=== PATIENT | female | born 1985 | race Caucasian/White ===

== ENCOUNTER 2021-12-27 14:24 | Outpatient (CLI) | payer SELFPAY ==
[~2021-12-27] VITALS: Ht 162.6 cm; Wt 91.8 kg
[2021-12-27 14:30] VITALS: TEMP 97.9
[2021-12-27 14:45] VITALS: BP 118/71; PULSE 77; TEMP 97.9
[2021-12-27] MEDS ORDERED: PRENATAL TABLET (15:08)
[2021-12-27] MEDS ORDERED: GLUCOPHAGE500 MG/TAB PO (15:09)
[2021-12-27] MEDS ORDERED: NOVOLIN N100 UNIT/1 SQ (15:41)
[2021-12-27] MEDS ORDERED: ZOLOFT 50MG50 MG (15:42)
[2021-12-27] MEDS ORDERED: ABILIFY 10MG TA10 MG (15:43)
[2021-12-27 16:30] VITALS: BP 118/71; PULSE 77; TEMP 97.9
--- NOTE | 2021-12-27 16:59 | NUR ---
PT DISCHARGED HOME IN STABLE CONDITION WITH NO COMPLAINTS. PT TO FOLLOW UP AT CLINIC TOMORROW. PT VERBALIZED UNDERSTANDING. LABOR PRECAUTIONS AND KICK COUNTS EDUCATION EXPLAINED TO PT. PT VERBALIZED UNDERSTANDING.
== END 2021-12-27 16:32 | disposition home or self-care (01) ==
LOC: LDRO 14:24
DX: Z34.90 Encounter for supervision of normal pregnancy, unspecified, unspecified trimester (principal); Z3A.00 Weeks of gestation of pregnancy not specified

== ENCOUNTER 2021-12-30 22:11 | Outpatient (CLI) | payer BC ==
[~2021-12-30] VITALS: Ht 162.6 cm; Wt 90.9 kg
[~2021-12-30 22:11] MED LIST: ABILIFY 10MG TA10 MG; GLUCOPHAGE500 MG/TAB PO; NOVOLIN N100 UNIT/1 SQ; PRENATAL TABLET; ZOLOFT 50MG50 MG
--- NOTE | 2021-12-30 22:15 | NUR ---
PATIENT ARRIVED ON THE UNIT WITH SPOUSE AND WITH NO DISTRESS COMPLAING OF CONTRACTIONS.
[2021-12-30 22:45] VITALS: BP 118/61; PULSE 93; TEMP 98
--- NOTE | 2021-12-30 23:50 | NUR ---
PATIENT GIVEN DISCHARGE ORDERS AND ALL QUESTIONS HAVE BEEN ASNWERED. PT. AMBULATED off the unit with spouse.
== END 2021-12-30 23:50 | disposition home or self-care (01) ==
LOC: LDRO 22:11 → LDR 22:15 → LDRO 23:50
DX: Z36.9 Encounter for antenatal screening, unspecified (principal); Z3A.37 37 weeks gestation of pregnancy
CPT/HCPCS: OP

== ENCOUNTER 2022-01-07 04:05 | Inpatient (IN) | payer BC ==
[~2022-01-07] VITALS: Ht 162.6 cm; Wt 93.2 kg
[2022-01-07] VITALS (24 sets, daily range): BP systolic 97–124; BP diastolic 53–80; PULSE 61–644; TEMP 97.6–98
--- NOTE | 2022-01-07 04:15 | NUR ---
G10. L9. Ambulatory to LDR 6 with spouse. Clean gown on and pt uses restroom. EFM and TOCO explained and applied. Pt reports contractions every 2-3 mins. Denies leaking of fluids. Reports minimal bloody show and good movement. Pt reports wanting to attempt TOLAC and states versandralized his okay. SVE completed and plan of care explained. Pt requesting epidural at this time 0430: called and notified of pts status. Admit orders received. See physican notification. 0455: IV started and labs obtained via IV sites. 0456: LR bolus infusing without difficulty. Pen G also started at this time. See eMarJoanna Cleveland FERMENTER CHAMPAGNE at nurses station and updated on pts request for epidural at this time. 0500: Megha FERMENTER CHAMPAGNE at bedside for epidural placement. Pt assisted to edge of bed for placement. Difficulty tracing FHR due to maternal position. Pulse ox applied. 0510: Single shot administered by Megha FERMENTER CHAMPAGNE. See anesthsia records. 0518: Pt assisted to wedge right position. Plan of care and safety precautions explained. 0555: Tavares placed. SVE completed. Blood sugar taken.
[2022-01-07 05:28] LABS: BASO % 0.3 % (0.0-2.0); EOS # 0.1 K/mm3 (0.0-0.7); EOS % 1.2 % (0.0-4.0); GRAN # 6.8 K/mm3 (1.4-6.5); GRAN % 65.4 % (42.2-75.2); HEMOGLOBIN 11.4 g/dl (12.5-16.0); LYMPH # 2.8 K/mm3 (1.2-3.4); MEAN CELL VOLUME 85 fl (80.0-100.0); MEAN CORPUSCULAR HEMOGLOBIN 29 pg (27-31); MEAN CORPUSCULAR HGB CONC 34 g/dl (33.0-37.0); MEAN PLATELET VOLUME 11.2 fl (7.4-10.4); MONO # 0.6 K/mm3 (0.1-0.6); MONO % 5.6 % (1.7-9.3); PLATELET COUNT 235 K/mm3 (130-400); RED BLOOD COUNT 3.91 M/mm3 (4.10-5.30); REDCELL DISTRIBUTION WIDTH-CV 14.3 % (11.5-14.5)
[2022-01-07 05:31] LABS: HEMATOCRIT 33.4 % (37.0-47.0)
--- NOTE | 2022-01-07 08:29 | NUR ---
0821 MD AT BEDSIDE. 0823 SVE BY MD COMPLETE WITH BULDGING BAG. PATIENT SET UP FOR DELIVERY. RN REMAINS AT BEDSIDE. 0829 AROM WITH MECONIUM NOTED, DELIVERY OF HEAD FOLLOWED BY DELIVERY OF . BABY PLACED OF MATERNAL CHEST.NURSERY NURSE AT BEDSIDE, CARE OF INFANT ASSUMED. 0836 SPONTANEOUS DELIVERY OF PLACENTA AND BOLUS PIT STARTED. EBL OF 100 ML REPORT FROM .
--- NOTE | 2022-01-07 12:28 | NUR ---
1207 PATIENT STILL FEELING EFFECTS OF EPIDURAL. 2 RN ASSIST TO PIVOT TO WHEELCHAIR. ASSITED IN RESTROOM, PERICARE COMPLETED. PATIENT MOVED TO ROOM 208. ASSISTED INTO BED. DECLINES PAIN MEDICATION AT THIS TIME. CALL YAP AND PERSONAL ITEMS IN REACH. WILL CONTINUE TO MONITOR.
[2022-01-08 03:00] VITALS: BP 110/58; PULSE 68; TEMP 98
--- NOTE | 2022-01-08 05:00 | NUR ---
@ 0100 PATIENT WAS OFFERED SCHEDULED PAIN MEDICATION. PT STATED SHE'S NOT IN PAIN AND WANTED TO REST.
[2022-01-08 08:50] VITALS: BP 118/65; PULSE 68; TEMP 97.7
[2022-01-08 18:40] VITALS: BP 116/62; PULSE 58; TEMP 98.2
--- NOTE | 2022-01-09 03:10 | NUR ---
PATIENT OBSERVED AMBULATING OFF THE UNIT WITH A STEADY GATE TO MEET HER THAT IS "PARKED IN THE PARKING LOT TO TAKE HER HOME".
[2022-01-09 07:36] VITALS: BP 101/52; PULSE 63; TEMP 97.5
[2022-01-09] MEDS ORDERED: IBU600 MG PO (10:53)
== END 2022-01-09 12:50 | disposition home or self-care (01) | DRG 806 ==
LOC: LDRO 04:05 → LDR 04:39 → OB 12:22
PROVIDERS: ADMIT Obstetrics & Gynecology
PROC: 10E0XZZ Delivery of Products of Conception, External Approach (ICD-10-PCS; principal; 2022-01-07)
PROC: 0HQ9XZZ Repair Perineum Skin, External Approach (ICD-10-PCS; 2022-01-07)
DX: O24.424 Gestational diabetes mellitus in childbirth, insulin controlled (principal); E72.12 Methylenetetrahydrofolate reductase deficiency; Z37.0 Single live birth; O43.123 Velamentous insertion of umbilical cord, third trimester; O99.02 Anemia complicating childbirth; D64.9 Anemia, unspecified; O99.344 Other mental disorders complicating childbirth; F32.A Depression, unspecified; O99.284 Endocrine, nutritional and metabolic diseases complicating childbirth; O77.0 Labor and delivery complicated by meconium in amniotic fluid; O70.9 Perineal laceration during delivery, unspecified; O34.211 Maternal care for low transverse scar from previous cesarean delivery; Z3A.38 38 weeks gestation of pregnancy
CPT/HCPCS: J2540; J2590; J2795; J7120

== ENCOUNTER 2024-02-29 23:00 | Observation (INO) | payer BC, MEDICAID ==
[~2024-02-29] VITALS: Ht 162.6 cm; Wt 90.4 kg
[~2024-02-29 23:00] MED LIST changes: +IBU600 MG PO; -PRENATAL TABLET; +PRENATAL TABLET PO; -ZOLOFT 50MG50 MG; +ZOLOFT 50MG50 MG PO
[2024-03-01] VITALS (8 sets, daily range): BP systolic 94–123; BP diastolic 58–71; PULSE 75–88; TEMP 98–98.5
--- NOTE | 2024-03-01 00:30 | NUR ---
Patient confused, thought it's daytime, reorientated by this nurse, will continue to monitor.
[2024-03-01] MEDS ORDERED: Acetaminophen 325 MG TAB PO PRN (01:45)
[2024-03-01] MEDS ORDERED: Ondansetron 4 MG/2 ML VIAL IV PRN (01:45)
[2024-03-01] MEDS ORDERED: NS 1,000 ML IV SCH (01:45)
[2024-03-01] MEDS ORDERED: cefTRIAXone 2 G in Water For Injection,Sterile 20 ML IV SCH (01:45)
--- NOTE | 2024-03-01 02:00 | NUR ---
Patient arrived to the floor at 0039 from [facility] via EMS,A/O, 20 weeks , came here for left flank pain that radiates to the left abdomen, supportive at bedside, admission assessment and intake done, medrec reviewed, called Dacia Maynard and informed him about patient's arrival, denies further needs, hospital policies orientated, will continue to monitor.
[2024-03-01] MEDS ORDERED: ABILIFY 10MG TA10 MG PO (02:03)
[2024-03-01] MEDS ORDERED: CEPHALEXIN500 M1 PO (02:06)
[2024-03-01 02:24] LABS: BASO % 0.3 % (0.0-2.0); EOS % 0.3 % (0.0-4.0); GRAN # 8.8 K/mm3 (1.4-6.5); GRAN % 75.8 % (42.2-75.2); HEMOGLOBIN 10.1 g/dl (12.5-16.0); LYMPH # 2.2 K/mm3 (1.2-3.4); LYMPH % 18.5 % (20.0-51.0); MEAN CELL VOLUME 84 fl (80.0-100.0); MEAN CORPUSCULAR HEMOGLOBIN 30 pg (27-31); MEAN CORPUSCULAR HGB CONC 35 g/dl (33.0-37.0); MEAN PLATELET VOLUME 10.2 fl (7.4-10.4); MONO # 0.5 K/mm3 (0.1-0.6); MONO % 4.7 % (1.7-9.3); PLATELET COUNT 217 K/mm3 (130-400); RED BLOOD COUNT 3.42 M/mm3 (4.10-5.30); REDCELL DISTRIBUTION WIDTH-CV 15.1 % (11.5-14.5)
[2024-03-01 02:27] LABS: HEMATOCRIT 28.6 % (37.0-47.0)
[2024-03-01 02:39] LABS: ALBUMIN 2.8 g/dL (3.5-5.0); BILIRUBIN,TOTAL 0.2 mg/dL (0.2-1.2); CALCIUM 8.4 mg/dL (8.4-10.2); CREATININE, serum 0.6 mg/dL (0.57-1.11); MAGNESIUM 1.8 mg/dL (1.6-2.6); TOTAL PROTEIN 6.3 g/dl (6.2-8.1)
--- NOTE | 2024-03-01 07:15 | NUR ---
SALES REPRESENTATIVE MARINE SUPPLIES AT BEDSIDE OBTAINING RENAL US
[2024-03-01 07:34] LABS: COLLECTION METHOD CLEAN CATCH
[2024-03-01 07:45] LABS: URINE APPEARANCE CLEAR (CLEAR/HAZY); URINE BLOOD 3+ (NEGATIVE); URINE COLOR YELLOW (YELLOW); URINE GLUCOSE NEGATIVE (NEGATIVE); URINE KETONE NEGATIVE (NEGATIVE); URINE NITRATE NEGATIVE (NEGATIVE); URINE PROTEIN(semi-quant) 2+ (NEGATIVE); URINE UROBILINOGEN 0.2 E.U/dL (0.2-1.0)
--- NOTE | 2024-03-01 08:00 | NUR ---
PATIENT IS A&O. VSS. RATES PAIN AT 3 AND DENIES NEED FOR PAIN MEDS AT THIS TIME. RENAL ULTRASOUND DONE AND RESULTS PENDING. NO C/O N/V. IV FLUIDS INFUSING VIA PUMP. PATIENT IS 12 WEEK WITH HER 11TH CHILD. SEE OB CONSULT, CALLED. HEAD TO TOE ASSESSMENT COMPLETE. AM MEDS GIVEN. AT BEDSIDE. CALL LIGHT IN REACH. PATIENT INDEPENDENT IN ROOM
[2024-03-01] MEDS ORDERED: [UNRECOGNIZED DRUG - OTHER] PO (08:43)
[2024-03-01] MEDS ORDERED: Prenatal Vitamins/Iron/FA TAB PO SCH (09:00)
--- NOTE | 2024-03-01 12:01 | NUR ---
D: Principal Librarian stopped by room on rounds. A: Pt was resting and content with in the room. Pt is from [facility] and has no needs right now. P: Principal Librarian informed pt that if they needed anything from the drywall finisher area to let their nurse know. Principal Librarian will follow up as needed.
[2024-03-01] MEDS ORDERED: Docusate Sodium 100 MG CAP PO SCH (14:45)
--- NOTE | 2024-03-01 14:45 | NUR ---
AT BEDSIDE, SEE NEW ORDERS.
--- NOTE | 2024-03-01 15:25 | NUR ---
Jewelry Maker met with patient to discuss discharge planning. Patient's , Mihai (ph#[phone]) is at bedside. Patient lives in [place] with Mihai and their 10 children. Patient stated her oldest child is 15[address] Medeiros for primary care and gets medications from the pharmacy in [place]. Patient stated sometimes they struggle to afford medications, however it has never stopped them from filling prescriptions. Patient uses a CPAP and no other DME. Patient is independent with ADLS and plans to return home at time of discharge. Patient stated her , Mihai is her DPOA-HC. Discharge Plan: Home
[2024-03-01] MEDS ORDERED: ARIPiprazole 10 MG TAB PO SCH (21:00)
[2024-03-01] MEDS ORDERED: Sertraline 50 MG TAB PO SCH (21:00)
--- NOTE | 2024-03-01 23:10 | NUR ---
Patient resting in bed. Rates pain at 3/10, denies need for pain meds at this time. Needs met. Assessment complete. IV in left AC infusing easily without complications. Call ligth and personal items in reach. Bed in low position.
[2024-03-02] VITALS (8 sets, daily range): BP systolic 96–116; BP diastolic 56–74; PULSE 67–76; TEMP 98.1–98.8
--- NOTE | 2024-03-02 06:00 | NUR ---
Patient resting in bed. No events overnight.
[2024-03-02 06:28] LABS: BASO % 0.4 % (0.0-2.0); EOS # 0.3 K/mm3 (0.0-0.7); EOS % 3.5 % (0.0-4.0); GRAN # 4.5 K/mm3 (1.4-6.5); GRAN % 55.8 % (42.2-75.2); LYMPH # 2.7 K/mm3 (1.2-3.4); LYMPH % 33.4 % (20.0-51.0); MEAN CELL VOLUME 85 fl (80.0-100.0); MEAN CORPUSCULAR HGB CONC 35 g/dl (33.0-37.0); MEAN PLATELET VOLUME 10.5 fl (7.4-10.4); MONO # 0.5 K/mm3 (0.1-0.6); MONO % 6.2 % (1.7-9.3); PLATELET COUNT 203 K/mm3 (130-400); RED BLOOD COUNT 3.37 M/mm3 (4.10-5.30); REDCELL DISTRIBUTION WIDTH-CV 15.3 % (11.5-14.5)
[2024-03-02 06:30] LABS: HEMATOCRIT 28.5 % (37.0-47.0); HEMOGLOBIN 9.9 g/dl (12.5-16.0); MEAN CORPUSCULAR HEMOGLOBIN 29 pg (27-31)
[2024-03-02 06:47] LABS: CALCIUM 8.5 mg/dL (8.4-10.2); CREATININE, serum 0.59 mg/dL (0.57-1.11); POTASSIUM 3.7 mEq/L (3.5-4.5)
--- NOTE | 2024-03-02 08:00 | NUR ---
PATIENT IS A&O. VSS. REPORTS VERY LITTLE ABD DISCOMFORT, NO C/O NAUSEA. TOLERATING GENERAL DIET. LEFT AC IV TO INT. AM MEDS GIVEN. HEAD TO TOE ASSESSMENT WNL. WBC OF 8.1. PLAN IS FOR PATIENT TO DISCHARGE HOME TODAY AFTER HER DOSE OF IV ABX. NO OTHER NEEDS AT THIS TIME. PATIENT GETTING INTO SHOWER. INDEPENDENT IN ROOM.
[2024-03-02] MEDS ORDERED: Magnes Hydrox (MOM) 80 MG/ML 30 ML CUP PO ONE (09:30)
--- NOTE | 2024-03-02 11:15 | NUR ---
MAKING ROUNDS, SEE ORDERS/NOTES.
--- NOTE | 2024-03-02 13:24 | NUR ---
Data: Spiritual care visit offered during Electric Crane Operator rounds. Patient declined. Assessment: None. Patient declined. Plan of Care: Chaplains will remain available as needed/requested while Patient is admitted to this hospital.
[2024-03-02] MEDS ORDERED: cefTRIAXone 2 G in Water For Injection,Sterile 20 ML IV SCH (14:00)
--- NOTE | 2024-03-02 15:00 | NUR ---
PATIENT DISCHARGING HOME VIA AMBULATORY WITH TO PERSONAL VEHICLE. GAVE DISCHARGE INSTRUCTIONS AND DISCUSSED F/U APT. ANSWERED QUESTIONS/CONCERNS. PATIENT HAD LAST DOSE OF IV ABX. IV DC'D AND COVERED SITE WITH GAUZE & TAPE. PATIENT IS DRESSED, PACKED AND DISCHARGED.
== END 2024-03-02 15:00 | disposition home or self-care (01) ==
LOC: MEDICAL 23:00 → SURG 03-01 01:18
PROVIDERS: Physician Assistant; ADMIT Internal Medicine
DX: O23.01 Infections of kidney in pregnancy, first trimester (principal); O99.211 Obesity complicating pregnancy, first trimester; Z3A.12 12 weeks gestation of pregnancy
CPT/HCPCS: G0378; G0379; J0696; J7030